=== PATIENT | female | born 2000 | race Two or more races ===

== ENCOUNTER 2021-04-12 16:47 | Emergency (ER) | payer OTHER, SELFPAY ==
[2021-04-12 17:32] VITALS: BP 102/57; PULSE 77; RESP 16; TEMP 36.3; O2SAT 100; BMI 24.3
[2021-04-12 18:05] LABS: IDNOW Serial# 9DD0AD1C; Strep A Nucleic Acid Negative (Negative)
--- NOTE | 2021-04-12 18:11 | ED.URI ---
HPI - URI/Sore Throat General Chief Complaint: Upper Respiratory Symptoms Stated Complaint: flu like Time Seen by Provider: 04/12/21 18:11 Source: patient Mode of arrival: ambulatory Limitations: no limitations History of Present Illness HPI Narrative: 20 y/o female presenting to the ER from home with 3 days of mild sore throat, runny nose, and dry cough. Her roommate is home with similar symptoms and he tested negative for COVID. She is fully vaccinated against COVID-19. She presents for COVID testing so that she can go back to work. MD elicited complaint: cough, sore throat and nasal congestion Onset (ago): day(s) (3) Consistency: intermittent Severity: mild Description of mucous: clear Able to tolerate fluids by mouth: Yes Exacerbating factors: nothing Relieving factors: nothing Context: sick contacts Associated symptoms: nasal congestion, sore throat and cough Treatments prior to arrival: none Related Data Allergies Allergy/AdvReac Type Severity Reaction Status Date / Time No Known Allergies Allergy Verified 04/12/21 17:37 Review of Systems Review of Systems: Constitutional: No Fever, No Chills ENT/Mouth: + sore throat, + Rhinorrhea, No Swallowing Difficulty Eyes: No Eye Pain, No Swelling, No Redness Cardiovascular: No Chest Pain, No SOB Respiratory: No Cough, No Sputum, No Wheezing, No dyspnea Gastrointestinal: No Nausea, No Vomiting, No abdominal Pain Musculoskeletal: No joint pain, No Myalgias Skin: No Skin Lesions, No rash Neuro: No Weakness, No Numbness, No Dizziness, No Headache Heme/Lymph: No Bruising, No Lymphadenopathy PMFSH Past Medical History Attestation statement: The following information was validated with the patient. Medical History (Updated 04/12/21 @ 18:48 by JOSEE Farris) No known health problems Social History Social History Advance Directives: No Advance Directives Information Provided: No Patient : No Physical Exam Vital Signs: Vital Signs: Last Vital Signs Temp 97.3 F 04/12/21 17:32 Pulse 77 04/12/21 17:32 Resp 16 04/12/21 17:32 BP 102/57 L 04/12/21 17:32 Pulse Ox 100 04/12/21 17:32 Body Mass Index 24.3 Appearance: Alert. Oriented X3. No acute distress. Eyes: Pupils equal, round and reactive to light. ENT: Pharynx normal. No tonsillar swelling, exudates, uvula midline. TMs are normal. Neck: Normal inspection. Neck supple. CVS: Normal heart rate and rhythm. Pulses normal. Respiratory: No respiratory distress. Breath sounds normal. Abdomen: Soft and nontender. +BS x4 Skin: Skin warm and dry. Normal skin color. Normal skin turgor. No rashes. Extremities: No lower extremity edema. Neuro: Oriented X 3. No motor deficit. No sensory deficit. Course Course Course Narrative: 20 y/o female presenting with mild URI symptoms, exam and vital signs are normal. Strep and COVID swabs are pending. Reevaluation(s) Reevaluation #1: All tests are negative. She is stable for discharge home. MDM - URI/Sore Throat Lab Data Labs: Lab Results 04/12/21 04/12/21 Range/Units 17:47 17:48 Coronavirus (PCR) NEGATIVE (Negative) Influenza Type A (PCR) NEGATIVE (Negative) Influenza Type B (PCR) NEGATIVE (Negative) RSV RNA Qual (PCR) NEGATIVE (Negative) S. pyogenes GrpA TEJAL Negative (Negative) Critical Care Time Critical Care Time Critical Care Time: No Discharge Plan Discharge Clinical Impression: Upper respiratory infection Qualifiers: URI type: unspecified URI Qualified Code(s): J06.9 - Acute upper respiratory infection, unspecified Patient Disposition: Home, Self-Care Instructions: Upper Respiratory Infection (ED) Additional Instructions: You were negative for Strep, COVID-19, Flu, & RSV. Your vital signs and exam were normal. Your symptoms are most likely due to a viral illness. Rest. Drink plenty of fluids. Take over the counter cold/flu medications as needed for your symptoms. Take Tylenol and/or Motrin as needed for fevers and body aches. Follow up with your doctor this week. If you develop new or worsening symptoms call 911 or come back to the ER for further evaluation. Stand Alone Forms: Work/School Release Interventions: ED Discharge Assessment Last Done: 04/12/21 19:02 Discharge Date/Time: 04/12/21 19:03
[2021-04-12 18:35] LABS: Influenza A PCR NEGATIVE (Negative); Influenza B PCR NEGATIVE (Negative); Resp Syncy Virus RNA Qual PCR NEGATIVE (Negative); SARS COV2 PCR INHOUSE NEGATIVE (Negative)
== END 2021-04-12 19:03 | disposition home or self-care (01) ==
PROVIDERS: Emergency Provider Internal Medicine
DX: J06.9 Acute upper respiratory infection, unspecified (principal); Z20.822 Contact with and (suspected) exposure to COVID-19; J02.9 Acute pharyngitis, unspecified
CPT/HCPCS: 0241U; 36415; 87651; 99283

== ENCOUNTER 2021-08-08 09:07 | Emergency (ER) | payer OTHER, SELFPAY ==
[2021-08-08 09:57] VITALS: BP 114/68; PULSE 108; RESP 18; TEMP 37.4; O2SAT 100; BMI 24.0
--- NOTE | 2021-08-08 10:34 | ED_ITS ---
HPI - General Adult General Chief complaint: Upper Respiratory Symptoms Stated complaint: COVID+ Time Seen by Provider: 08/08/21 10:34 History of Present Illness HPI narrative: Patient complains of 3 days of runny nose mild cough body aches, tested positive for COVID yesterday but did not get a work note is here today for work no She did get the vaccine 2 shots last summer Related Data Allergies Allergy/AdvReac Type Severity Reaction Status Date / Time No Known Allergies Allergy Verified 08/08/21 09:56 Review of Systems Review of Systems: Positive for runny nose mild cough and body aches Negatives are no fever no chills no dizziness weakness no headache no stiff neck no sore throat no chest pain no shortness of breath no sputum no abdominal pain no nausea vomiting or diarrhea Yes all other systems are reviewed and are negative [facility] Past Medical History Source: nursing notes reviewed Medical History (Updated 08/08/21 @ 10:40 by JOSEE Saini) No known health problems Social History Social History Advance Directives: No Advance Directives Information Provided: Yes Patient : No Physical Exam Vital Signs: Vital Signs: Last Vital Signs Temp 99.3 F 08/08/21 09:57 Pulse 108 H 08/08/21 09:57 Resp 18 08/08/21 09:57 BP 114/68 08/08/21 09:57 Pulse Ox 100 08/08/21 09:57 BMI result Body Mass Index 24.0 General appearance no acute distress Eyes no redness or discharge The pharynx no redness swelling or exudate, mucous membranes moist Neck is supple Chest clear to auscultation bilateral Heart no murmur Extremities full range of motion x4 Course Course Course Narrative: Well-appearing patient with COVID is discharged with a work note Discharge Plan Discharge Clinical Impression: COVID-19 Patient Disposition: Home, Self-Care Additional Instructions: Because he tested positive for COVID you should quarantine for 10 days Tylenol or Motrin as needed for body aches or fever Plenty fluids Return any time for difficulty breathing any worse condition or any concerns Quarantine for 10 days, this is very contagious Stand Alone Forms: Work/School Release Interventions: ED Discharge Assessment Last Done: 08/08/21 10:42 Discharge Date/Time: 08/08/21 10:43
== END 2021-08-08 10:43 | disposition home or self-care (01) ==
PROVIDERS: Emergency Provider Emergency Medicine
DX: U07.1 COVID-19 (principal); Z02.79 Encounter for issue of other medical certificate; M79.10 Myalgia, unspecified site
CPT/HCPCS: 99282

== ENCOUNTER 2021-09-13 15:20 | Emergency (ER) | payer OTHER, SELFPAY ==
[2021-09-13 15:23] VITALS: BP 114/55; PULSE 83; RESP 20; TEMP 36.9; O2SAT 97; BMI 22.8
[2021-09-13] MEDS: Lidocaine HCl 2 % MPF 5 ML VIAL SUBCUT (15:47)
[2021-09-13] MEDS: Diphth,Pertus(ACell),Tet Adult 0.5 ML SYRINGE IM (16:10)
--- NOTE | 2021-09-13 16:18 | ED_ITS ---
HPI - Animal Bite General Chief Complaint: Animal Bite Stated Complaint: dog pit her in the mouth Time Seen by Provider: 09/13/21 15:31 Source: patient Mode of arrival: ambulatory Limitations: no limitations History of Present Illness HPI narrative: 21-year-old female healthy here with reports of dog bite to the right lower lip. Patient tells me she was playing with her dog when she is care day and it bit her right lower lip. Rabies vaccines are not up-to-date. The patient's tetanus status is not up-to-date. Related Data Allergies Allergy/AdvReac Type Severity Reaction Status Date / Time No Known Allergies Allergy Verified 08/08/21 09:56 Review of Systems Verdana 4l Review of Systems: Yes all other systems are reviewed and Verdana 4d are negative Verdana 4l Constitutional: Verdana 4d Constitutional: Verdana 4d Verdana 4d Reports no additional constitutional complaints, Denies body ache(s), Denies chills, Denies fever(s), Denies headache(s) and Denies weakness Verdana 4l Eyes: Verdana 4d Verdana 4d Eyes: Verdana 4d Reports no additional eye complaints and Denies change in vision Verdana 4l ENT: Verdana 4d Reports system reviewed and no additional complaints, except as documented, Denies dizziness, Denies headache(s), Denies nasal congestion, Denies nasal discharge and Denies neck pain Verdana 4l Cardiovascular: Verdana 4d Cardiovascular: Verdana 4d Verdana 4d Reports no additional cardiovascular complaints, Denies chest pain, Denies leg edema and Denies dyspnea Verdana 4l Respiratory: Verdana 4d Verdana 4d Respiratory: Verdana 4d Reports no additional respiratory complaints, Denies cough and Denies dyspnea Verdana 4l Gastrointestinal: Verdana 4d Gastrointestinal: Verdana 4d Verdana 4d Reports no additional gastrointestinal complaints, Denies abdominal pain, Denies diarrhea, Denies nausea and Denies vomiting Verdana 4l Genitourinary: Verdana 4d Verdana 4d Genitourinary: Verdana 4d Reports no additional female genitourinary complaints and Denies urinary incontinence Verdana 4l Musculoskeletal: Verdana 4d Musculoskeletal: Verdana 4d Verdana 4d Reports no additional musculoskeletal complaints, Denies back pain, Denies arthralgias, Denies joint swelling, Denies neck pain, Denies numbness and Denies tingling Verdana 4l Integumentary/Breasts: Verdana 4d Skin/Breast: Verdana 4d Verdana 4d Reports system reviewed and no additional complaints, except as docu and Denies rash Verdana 4d Comments: Verdana 4d Verdana 4d +lac Verdana 4 d Verdana 4l Neurologic: Verdana 4d Reports system reviewed and no additional complaints, except as documented, Denies Abnormal speech present, Denies dizziness, Denies headache(s), Denies numbness, Denies tingling and Denies weakness PMFSH Past Medical History Attestation statement: The following information was validated with the patient. Source: old records reviewed and nursing notes reviewed Medical History No known health problems Social History Social History Advance Directives: No Advance Directives Information Provided: No Patient : No Physical Exam Verdana 4l Vital Signs: Verdana 4d Verdana 4d Vital Signs: Verdana 4d Verdana 4Bd Last Vital Signs Verdana 4d Drop Press Hand New 4d Drop Press Hand New 4d Temp 98.4 F 09/13/21 15:23 Drop Press Hand New 4d Pulse 83 09/13/21 15:23 Drop Press Hand New 4d Resp 20 09/13/21 15:23 BP 114/55 L 09/13/21 15:23 Pulse Ox 97 09/13/21 15:23 BMI result Body Mass Index 22.8 Const: General: cooperative, healthy appearing, comfortable and no acute distress Orientation/consciousness: patient oriented x3 Limitations: no limitations HENMT: Head: Yes normal to inspection Ears: hearing grossly normal bilaterally General nose exam: Normal external nose present Nose image: 1. 2 cm laceration which crosses the vermilion border. Bleeding is controlled Face and sinus: Yes normal facial exam Mouth: Normal oral and palatal mucosa present Throat: Yes posterior oropharynx normal Eyes: General: appearance normal, both eyes and all related structures Pupils: Equal, round and reactive pupils present Neck: Neck: Yes normal visual inspection Chest: Chest palpation & inspection: normal inspection of the chest Resp: Effort & Inspection: normal respiratory effort Auscultation: clear to auscult ation bilaterally Cardio: Rate: regular rate Rhythm: regular rhythm Peripheral pulses: Peripheral pulses 2+ throughout GI: Inspection: Yes normal to inspection Palpation (GI): Soft to palpation and nontender Auscultation: normal bowel sounds Back/Spine/Pelvis: Thoracic/Lumbar Spine: thoracic and lumbar spine normal to inspection Skin: General skin exam: no rashes or lesions noted Neuro: General: patient oriented x3, no focal motor deficits and normal sensation to monofilament Cranial nerves: Yes Equal, round and reactive pupils present Cognition (Neuro): normal cognition Speech: No Abnormal speech present Gait exam (Neuro): Normal gait present Motor exam (neuro): 5/5 motor strength present throughout Extrem: General: Yes normal to inspection Course Course Course Narrative: 21-year-old female here with dog bite to the face which occurred just prior to arrival. This is from the patient's own dog. Dog behaviors normal. Rabies va ccines are not up-to-date. Patient will monitor at home so she does not require reviewed back soon a shunt series. Will update tetanus. Patient will need wound repair. Reviewed worrisome signs and symptoms of when to return to the emergency department. Comfortable discharge home. MDM - Animal Bite Differential Diagnosis Differential diagnosis: Likely dog bite Medical Records Attestation: I reviewed the patient's medical records. Lab Data Attestation: I reviewed the patient's lab results. Procedures Laceration Laceration 1: Site: lip Side (If applicable): right Size (cm): 2 Description: linear Depth: simple, single layer Local Anesthetic: lidocaine 2% Amount of anesthesia used (mL): 1 Pre-repair: wound explored, irrigated extensively and deep structures intact Skin layer closed with: vicryl Size (cm): 6-0 Number of sutures: 2 Technique: simple, interrupted Discharge Plan Discharge Clinical Impression: Dog bite Patient Disposition: Home, Self-Care Instructions: Animal Bite (ED) Additional Instructions: Sutures out in 5-7 days Soft food only No straws for drinking Referrals: Physician,None [Primary Care Provider] - 2 days Interventions: ED Discharge Assessment Last Done: 09/13/21 16:23 Discharge Date/Time: 09/13/21 16:23
== END 2021-09-13 16:23 | disposition home or self-care (01) ==
PROVIDERS: Emergency Provider Emergency Medicine
DX: S01.551A Open bite of lip, initial encounter (principal); W54.0XXA Bitten by dog, initial encounter; Y93.89 Activity, other specified; Y92.039 Unspecified place in apartment as the place of occurrence of the external cause; Y99.9 Unspecified external cause status
CPT/HCPCS: 12051; 90471; 90715; 99283; 99284

== ENCOUNTER 2021-09-15 14:22 | Emergency (ER) | payer OTHER, SELFPAY ==
[2021-09-15 15:00] VITALS: BP 102/50; PULSE 60; RESP 16; TEMP 36.6; O2SAT 99; BMI 23.4
--- NOTE | 2021-09-15 15:49 | ED_ITS ---
HPI - Wound/Laceration General Chief Complaint: Wound/Laceration Stated Complaint: wound check Time Seen by Provider: 09/15/21 15:31 Source: patient Mode of arrival: ambulatory Limitations: no limitations History of Present Illness HPI narrative: 21-year-old female presents to ED for evaluation of dog bite wound to right side of lower lip. Patient states she has sutures placed on Wednesday and 1 popped and fell out. Patient denies any erythema, pus discharge, foul odor, or pain. Related Data Previous Rx's Medication Instructions Recorded amoxicillin 875 mg-potassium 1 tab PO Q12H 10 Days #20 tab 09/15/21 clavulanate 125 mg tablet Allergies Allergy/AdvReac Type Severity Reaction Status Date / Time No Known Allergies Allergy Verified 09/15/21 14:59 Review of Systems Review of Systems: wound dehiscence Yes all other systems are reviewed and are negative [facility] Past Medical History Medical History No known health problems Social History Social History Advance Directives: No Advance Directives Information Provided: No Patient : No Physical Exam Vital Signs: Vital Signs: Last Vital Signs Temp 97.9 F 09/15/21 15:00 Pulse 60 09/15/21 15:00 Resp 16 09/15/21 15:00 BP 102/50 L 09/15/21 15:00 Pulse Ox 99 09/15/21 15:00 BMI result Body Mass Index 23.4 Const: General: cooperative, healthy appearing, comfortable, no acute distress, well developed, alert, awake and Physically active Orientation/consciousness: patient oriented x3 HENMT: Head: Yes normal to inspection, Yes No palpable skull fracture present, Yes normocephalic and Yes atraumatic Head images: 1. patient has one suture in place wound that is healthy, healing. other wound suture no longer present, but is healing and negative for signs of infection. Eyes: General: appearance normal, both eyes and all related structures Neck: Neck: Yes normal visual inspection, Yes full ROM, Yes no lymphadenopathy, Yes no meningeal signs, Yes trachea midline, Yes supple, No anterior neck swelling and No tender Chest: Chest palpation & inspection: normal inspection of the chest and normal palpation of entire chest wall Resp: Effort & Inspection: normal respiratory effort and able to speak in complete sentences Auscultation: clear to auscultation bilaterally Cardio: Jugular venous distension: no JVD Heart sounds: S1 normal heart sound present and S2 normal heart sound present GI: Inspection: Yes normal to inspection and No abdominal wall ecchymosis Palpation (GI): Soft to palpation, not firm, nontender, no guarding and not rigid : General: No CVA tenderness and Yes no CVA tenderness Back/Spine/Pelvis: Back: no CVA tenderness, No CVA tenderness and No back tenderness Skin: General skin exam: no rashes or lesions noted and elasticity normal Neuro: General: patient oriented x3, gait normal, no meningeal signs and CN's II-XI intact bilaterally Cranial nerves: Yes CN's II-XII intact bilaterally Extrem: General: Yes normal to inspection and Yes full ROM Psych: Appearance: grossly normal, well kempt and not disheveled Course Course Course Narrative: Healthy wound. Reevaluation(s) Reevaluation #1: Wound negative for signs of infection. No need for repeat laceration repair. Wound dehiscence mild. Patient was seen here wednesday and was not discharged with antibiotics, will discharge with antibiotics for dog bite. Time: 15:58 MDM - Wound/Laceration MDM Narrative Medical decision making narrative: Wound dehiscence Discharge Plan Discharge Clinical Impression: Wound dehiscence Patient Disposition: Home, Self-Care Instructions: Wound Dehiscence (ED), Care For Your Absorbable Stitches (ED) Additional Instructions: There is no need for another laceration repair. Wound is healing and will continually heal on its own. He will be discharged with antibiotics to prevent infection from dog bite. Please follow-up with primary care provider. Return to ED for swelling of lips, redness, pus discharge, foul odor, fever, chills, or any other concerning symptoms. Prescriptions: New amoxicillin-pot clavulanate 875-125 mg tablet 1 tab PO Q12H 10 Days Qty: 20 0RF Interventions: ED Discharge Assessment Last Done: 09/15/21 16:17 Discharge Date/Time: 09/15/21 16:17 Print Language: Tongan
== END 2021-09-15 16:17 | disposition home or self-care (01) ==
PROVIDERS: Emergency Provider Emergency Medicine
DX: T81.33XD Disruption of traumatic injury wound repair, subsequent encounter (principal); Y82.9 Unspecified medical devices associated with adverse incidents
CPT/HCPCS: 99283

== ENCOUNTER 2021-12-27 11:40 | Emergency (ER) | payer OTHER, SELFPAY ==
[2021-12-27 12:06] VITALS: BP 113/52; PULSE 77; RESP 16; TEMP 36.6; O2SAT 99; BMI 23.4
--- NOTE | 2021-12-27 12:23 | ED.WOUNDLAC ---
HPI - Wound/Laceration General Chief Complaint: Wound/Laceration Stated Complaint: wound/lac. on buttocks Time Seen by Provider: 12/27/21 12:22 Source: patient Mode of arrival: ambulatory Limitations: no limitations History of Present Illness HPI narrative: 21 y/o female presents to the ER for evaluation of a pimple on her right buttock area for the last 4 days. She states it is draining puss starting last night and she had some subjective fevers last night. She reports history of similar but not this bad. Not diabetic. She works as a sprinkler truck driver is wondering how she is going to sit for prolonged time due to the pain. She denies any urinary symptom, genital lesions. Onset (ago): day(s) (4) Location: other (buttock) Place: home Patient tetanus UTD: Yes Context: accidental Associated symptoms: pain Treatments prior to arrival: other (attempted to drain pus at home) Related Data Previous Rx's Medication Instructions Recorded amoxicillin 875 mg-potassium 1 tab PO Q12H 10 Days #20 tab 09/15/21 clavulanate 125 mg tablet cephalexin 500 mg capsule 500 mg PO Q6H 7 Days #28 cap 12/27/21 ibuprofen 600 mg tablet 600 mg PO Q8H PRN #14 tab 12/27/21 Allergies Allergy/AdvReac Type Severity Reaction Status Date / Time No Known Allergies Allergy Verified 12/27/21 12:06 Review of Systems Review of Systems: Constitutional: + Fever,+Chills Cardiovascular: No Chest Pain, No SOB Gastrointestinal: No Nausea, No Vomiting,, No abdominal Pain Genitourinary: No Dysuria, No Urinary Frequency, No Hematuria Musculoskeletal: No joint pain, No Myalgias Skin: +Skin Lesions, No rash Neuro: No Weakness, No Dizziness, No Headache Psych: + Anxiety/Panic Heme/Lymph: No Bruising, No Lymphadenopathy PMFSH Past Medical History Medical History No known health problems Social History Social History Advance Directives: No Physical Exam Vital Signs: Vital Signs: Last Vital Signs Temp 97.8 F 12/27/21 12:06 Pulse 77 12/27/21 12:06 Resp 16 12/27/21 12:06 BP 113/52 L 12/27/21 12:06 Pulse Ox 99 12/27/21 12:06 BMI result Body Mass Index 23.4 Appearance: Alert. Oriented X3. No acute distress. HEENT: normal inspection CVS: Normal heart rate and rhythm. Pulses normal. Respiratory: No respiratory distress. Skin: Skin warm and dry. Normal skin color. Normal skin turgor. No rashes. Buttock: right buttock with a 6cm circular erythematous and indurated area with central pustule with draining bloody fluid, tender Extremities: normal inspection x4 Neuro: Oriented X 3. grossly normal, nonfocal Course Course Course Narrative: 21-year-old female presenting with draining abscess to right buttock with associated cellulitis. Will start on PO abx. no need for further incision and drainage. stable for d/c home with abx and NSAID. Discharge Plan Discharge Clinical Impression: Abscess, Cellulitis Patient Disposition: Home, Self-Care Instructions: Cellulitis (DC), Abscess (ED), Warm Compress or Soak (ED) Additional Instructions: Take the prescribed antibiotic as directed, complete the entire course. Use warm compresses to the area several times per day. If you develop new or worsening symptoms call 911 or come back to the ER for further evaluation. Prescriptions: New cephalexin 500 mg capsule 500 mg PO Q6H 7 Days Qty: 28 0RF ibuprofen 600 mg tablet 600 mg PO Q8H PRN (Reason: pain) Qty: 14 0RF No Action amoxicillin-pot clavulanate 875-125 mg tablet 1 tab PO Q12H 10 Days Qty: 20 0RF Stand Alone Forms: Work/School Release
[2021-12-27] MEDS: Ibuprofen 600 MG TABLET PO (12:57)
== END 2021-12-27 13:05 | disposition home or self-care (01) ==
PROVIDERS: Emergency Provider Emergency Medicine Emergency Medical Services
DX: L02.31 Cutaneous abscess of buttock (principal); L03.317 Cellulitis of buttock; Z79.899 Other long term (current) drug therapy
CPT/HCPCS: 99283

== ENCOUNTER 2021-12-28 17:16 | Emergency (ER) | payer OTHER, SELFPAY ==
[2021-12-28 17:19] VITALS: BP 116/50; PULSE 92; RESP 18; TEMP 37.1; O2SAT 99; BMI 23.4
--- NOTE | 2021-12-28 18:44 | ED.SKABFB ---
HPI - Skin/Abscess/Foreign Bdy General Chief complaint: Skin/Abscess/Foreign Body Stated complaint: wound on buttocks Source: patient Mode of arrival: ambulatory Limitations: no limitations History of Present Illness HPI narrative: 21-year-old female presents for evaluation of an abscess that was drained at this facility yesterday. States that she is having a difficult time sitting and pain is 10/10. MD complaint: abscess/boil Onset (ago): day(s) Tetanus up to date: yes Location: buttocks Severity: severe Severity scale (1-10): 10 Quality: burning and constant Pain Consistency: constant Relieving factors: rest Exacerbating factors: movement and other (Sitting) Context: other (Recent I&D) Associated symptoms: denies other symptoms Treatments prior to arrival: none Related Data Previous Rx's Medication Instructions Recorded amoxicillin 875 mg-potassium 1 tab PO Q12H 10 Days #20 tab 09/15/21 clavulanate 125 mg tablet cephalexin 500 mg capsule 500 mg PO Q6H 7 Days #28 cap 12/27/21 ibuprofen 600 mg tablet 600 mg PO Q8H PRN #14 tab 12/27/21 oxycodone 5 mg tablet 5 mg PO Q6H PRN #7 tab 12/28/21 Allergies Allergy/AdvReac Type Severity Reaction Status Date / Time No Known Allergies Allergy Verified 12/28/21 17:19 Review of Systems Review of Systems: Constitutional: No Fever, No Chills ENT/Mouth: No Ear Pain, No Hoarseness, No sore throat Eyes: No Eye Pain, No Swelling, No Redness, No Foreign Body Cardiovascular: No Chest Pain, No SOB Respiratory: No Cough, No Dyspnea Gastrointestinal: No Nausea, No Vomiting, No Diarrhea, No abdominal Pain Genitourinary: No Dysuria, No Hematuria Musculoskeletal: positive left buttocks pain, No Myalgias, No Joint Swelling Skin: No Skin lacerations, No rash Neuro: No Weakness, No Numbness, No Paresthesias, No Loss of Consciousness, No Dizziness, No Headache Psych: No Anxiety/Panic, No Depression Heme/Lymph: no easy bruising, no Lymphadenopathy Endocrine: No Polyuria, No Polydipsia Yes all other systems are reviewed and are negative PMFSH Past Medical History Attestation statement: The following information was validated with the patient. Source: old records reviewed Medical History No known health problems Social History Social History Advance Directives: No Advance Directives Information Provided: Yes Physical Exam Vital Signs: Vital Signs: Last Vital Signs Temp 98.8 F 12/28/21 17:19 Pulse 92 12/28/21 17:19 Resp 18 12/28/21 17:19 BP 116/50 L 12/28/21 17:19 Pulse Ox 99 12/28/21 17:19 BMI result Body Mass Index 23.4 Appearance: Alert. Oriented X3. No acute distress. Eyes: Pupils equal, round and reactive to light. ENT: Pharynx normal. Neck: Normal inspection. Neck supple. CVS: Normal heart rate and rhythm. Pulses normal. Respiratory: No respiratory distress. Breath sounds normal. Abdomen: Soft and nontender. Skin: Draining abscess approximately 2 cm in diameter with induration on the left buttock, minimal cellulitis. Skin warm and dry. Normal skin color. Normal skin turgor. Extremities: No lower extremity edema. Gait well balanced well coordinated. Neuro: No motor deficit. No sensory deficit. Cranial nerves 2-12 intact. Course Course Course Narrative: 21-year-old female presents for evaluation of an I&D of a buttocks abscess. States that she is on ibuprofen and Keflex with poor effect for pain management. Site is actively draining, nonodorous drainage. Approximately 2 cm of induration with 1 cm cellulitis surrounding the incision site. Area appears to be healing appropriately. Patient is afebrile, appears nontoxic. Will treat for pain with 4 mg of IM morphine and p.o. oxycodone. 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 I will give her work release note and provide oxycodone for pain management patient does understand that she must follow-up with primary care physician and return for evaluation if symptoms worsen. Patient verbalized understanding of and agrees to plan of care to discharge home. Verbalized understanding of signs and symptoms indicating need for emergent intervention MDM - Skin/Abscess/Foreign Bdy Differential Diagnosis Differential diagnosis: Likely abscess of skin or subcutaneous tissue and cellulitis Medical Records Attestation: I reviewed the patient's medical records. Discharge Plan Discharge Clinical Impression: Cellulitis, Abscess of skin or subcutaneous tissue Patient Disposition: Home, Self-Care Instructions: Abscess Follow-up (ED) Additional Instructions: You were evaluated for pain at an I&D site to her left buttock. The wound is healing well, continue to take your medications as prescribed. For pain management I prescribed oxycodone. This medication is a narcotic and has high risk for addiction and abuse. Do not drive or operate machinery while taking this medication. This medication can cause drowsiness, increased risk for falls, decreased reaction time, and cause constipation. Drink plenty of fluids, consider using MiraLax daily while on this medication to prevent constipation. Follow-up with primary care physician. Return if symptoms worsen Thank you for choosing this emergency department for evaluation. Please follow-up with primary care physician as needed. Return to the emergency department for any new, concerning, or worsening symptoms. Prescriptions: New oxycodone 5 mg tablet 5 mg PO Q6H PRN (Reason: pain) Qty: 7 0RF No Action amoxicillin-pot clavulanate 875-125 mg tablet 1 tab PO Q12H 10 Days Qty: 20 0RF cephalexin 500 mg capsule 500 mg PO Q6H 7 Days Qty: 28 0RF ibuprofen 600 mg tablet 600 mg PO Q8H PRN (Reason: pain) Qty: 14 0RF Stand Alone Forms: Work/School Release Interventions: ED Discharge Assessment Last Done: 12/28/21 19:29 Discharge Date/Time: 12/28/21 19:30
[2021-12-28] MEDS: oxyCODONE HCl Immed Release 5 MG TABLET PO (19:18)
[2021-12-28] MEDS: Morphine Sulfate 4 MG/ML CARTRIDGE IM (19:19)
== END 2021-12-28 19:30 | disposition home or self-care (01) ==
PROVIDERS: Emergency Provider Internal Medicine
DX: L02.31 Cutaneous abscess of buttock (principal); L03.317 Cellulitis of buttock; Z98.890 Other specified postprocedural states
CPT/HCPCS: 96372; 99282; 99284; J2270

== ENCOUNTER 2023-02-03 14:26 | Emergency (ER) | payer OTHER, SELFPAY ==
--- NOTE | ~2023-02-03 | XR_ITS ---
EXAMINATION: XR FOOT, RIGHT CLINICAL INFORMATION: Air conditioner fell on foot. COMPARISON: None available. TECHNIQUE: AP, lateral, and oblique views of the right foot. FINDINGS: Alignment is anatomic. Joint spaces are maintained. No displaced fracture or dislocation. XR/XR foot RT min 3V IMPRESSION: No acute abnormality.
[2023-02-03 15:12] VITALS: BP 114/70; PULSE 64; RESP 18; TEMP 36.4; O2SAT 100; BMI 24.6
--- NOTE | 2023-02-03 15:12 | ED.LOWEXIN ---
HPI - Extremity Injury (Lower) General Chief Complaint: Extremity Injury, Lower Stated Complaint: right foot injury Time Seen by Provider: 02/03/23 15:19 Source: patient Mode of arrival: ambulatory Limitations: no limitations History of Present Illness HPI Narrative: Patient is a 22-year-old female with no pertinent past medical history who presents today after dropping a portable AC on her right foot yesterday. Patient reports difficulty walking as there is pain on the plantar aspect of her right foot at the base of the first toe. Patient is ambulating and reports increased pain throughout the day wall walking. Patient denies swelling, ecchymosis, and warmth at the injury site. Patient denies limited range of motion, numbness, tingling, difficulty with balance, fevers, chills. . Patient reports taking an aspirin 2 days ago little to no relief. No previous issues w/ R foot. . Injury: Right: foot (Pain upon weight bearing on the plantar aspect at the base of the first toe) Type of Injury: blunt Place: street/outdoors Severity: mild Severity scale (1-10): 5 (Pain when walking ) Relieving factors: immobilization and rest Exacerbating factors: weight bearing Context: direct blow and other Associated symptoms: ambulatory Other symptoms: none Related Data Previous Rx's Medication Instructions Recorded amoxicillin 875 mg-potassium 1 tab PO Q12H 10 days #20 tabs 09/15/21 clavulanate 125 mg tablet cephalexin 500 mg capsule 500 mg PO Q6H 7 days #28 caps 12/27/21 ibuprofen 600 mg tablet 600 mg PO Q8H PRN pain #14 tabs 12/27/21 oxycodone 5 mg tablet 5 mg PO Q6H PRN pain #7 tabs 12/28/21 Allergies Allergy/AdvReac Type Severity Reaction Status Date / Time No Known Allergies Allergy Verified 02/03/23 15:15 Review of Systems Review of Systems: Constitutional : No Weight loss, No Fever, No Chills, No Fatigue, No Malaise ENT/Mouth : No sore throat, No Rhinorrhea Eyes: No Eye Pain, No Swelling, No Redness Cardiovascular : No Chest Pain, No SOB, No Dyspnea on Exertion, No Orthopnea, No Edema, No Palpitations Respiratory : No Cough, No Sputum, No Wheezing Gastrointestinal : No Nausea, No Vomiting, No Diarrhea, No Constipation, No abdominal Pain, No Hematochezia, No Melena Genitourinary : No Dysuria, No Urinary Frequency, No Hematuria, Musculoskeletal : + joint pain, No Myalgias, No Joint Swelling Skin : No Skin Lesions, No rash Neuro : No Weakness, No Numbness, No Dizziness, No Headache Psych : No Anxiety/Panic, No Depression All other systems reviewed and are negative Yes all other systems are reviewed and are negative Musculoskeletal: Musculoskeletal: Reports as per [facility] Past Medical History Attestation statement: The following information was validated with the patient. Source: old records reviewed and nursing notes reviewed Medical History No known health problems Social History Social History Advance Directives: No Advance Directives Information Provided: No Physical Exam Vital Signs: Vital Signs: Last Vital Signs Temp 97.6 F 02/03/23 15:12 Pulse 64 02/03/23 15:12 Resp 18 02/03/23 16:00 BP 114/70 02/03/23 15:12 Pulse Ox 100 02/03/23 15:12 O2 Del Method Room Air 02/03/23 15:12 BMI result Body Mass Index 24.6 vital signs stable Appearance: Alert.? Oriented X3.? No acute distress.? Head: Normocephalic, atraumatic, no step-offs or deformities Eyes: Pupils equal, round and reactive to light.? CVS: Normal heart rate and rhythm.? Pulses normal.? Respiratory: No respiratory distress.? Breath sounds normal.? Abdomen: Soft and nontender.? Skin: Skin warm and dry.? Normal skin color.? Normal skin turgor.? Extremities: No lower extremity edema.? No calf ttp. 5/5 strength to bilateral upper and lower extremities Normal range of motion to bilateral ankles, toes, 2+ dorsalis pedis, anterior tibialis and posterior tibialis pulses equal bilateral. Normal sensation distally to bilateral lower extremities. Capillary refill less than 2 seconds to bilateral lower extremities. Mild TTP to ball of R. foot. Back: No midline tenderness, no C-spine tenderness, full range of motion, no CVA tenderness bilaterally Neuro: Oriented X 3.? No motor deficit.? No sensory deficit. CN 2-12 intact . Ambulating with steady gait normal coordination However slight limp favoring her left foot Course Course Course Narrative: RME: 22yo F w/no sig PMHx c/o right foot pain s/p dropping AC unit on foot yesterday around 9pm. Ambulating w/pain No appreciable deformity. NV intact XR ordered Full HPI, ROS and PE to be performed by primary ED provider. Reevaluation(s) Reevaluation #1: X-ray foot no acute abnormality. Likely sprain or strain. Patient given crutches for comfort. Given Orthopedic follow-up with needed. Educated patient on diagnosis and treatment plan, answered all question, patient verbalizes understanding. At this time patient will be discharged home, advised to return with new or worsening symptoms. Educated on worrisome signs and symptoms and when to return. At this time I feel comfortable discharge home. Time: 16:39 Medical Decision Making Medical Decision Making [facility] Narrative: 1526 22-year-old female presents with right foot pain status post dropping an air conditioner on her foot last night. Physical exam significant for 5/5 strength to bilateral upper and lower extremities Normal range of motion to bilateral ankles, toes, 2+ dorsalis pedis, anterior tibialis and posterior tibialis pulses equal bilateral. Normal sensation distally to bilateral lower extremities. Capillary refill less than 2 seconds to bilateral lower extremities. Mild TTP to ball of R. foot. concerns for sprain / strain. Unlikely fractures, dislocations. No signs of neurovascular compromise or threatened limb. Plan x-ray Differential Diagnosis Differential Diagnoses: The differential diagnosis associated with the presentation includes Physical exam significant for 5/5 strength to bilateral upper and lower extremities Normal range of motion to bilateral ankles, toes, 2+ dorsalis pedis, anterior tibialis and posterior tibialis pulses equal bilateral. Normal sensation distally to bilateral lower extremities. Capillary refill less than 2 seconds to bilateral lower extremities. No tenderness to palpation of foot bilaterally. Admission/Observation Consideration of admission/observation: Escalation of care including admission/observation considered unl Independent Interpretation I performed an independent interpretation of an: Plain X-Ray (XR/XR foot RT min 3V IMPRESSION: No acute abnormality.) Radiology Impression Discussion of test interpretation with radiology: I have reviewed the radiologist's reading. Core Measures AMI core measures followed: Yes Measure exclusions: not indicated Critical Care Time Critical Care Time Critical Care Time: No Discharge Plan Discharge Clinical Impression: Foot pain Patient Disposition: Home, Self-Care Instructions: Crutch Instructions (ED), Arthralgia (ED), R.I.C.E. Treatment (ED) Additional Instructions: Take your medications as prescribed. If you were prescribed antibiotics today, it is important that you take your medication to their entirety, do not skip any doses, do not finish them early. Follow-up with your primary care provider this week. follow-up with the orthopedic team if symptoms persist greater than 2 week Return to the emergency department with new or worsening symptoms. Such as fevers, chills, chest pain, shortness of breath, nausea, vomiting, dizziness, headache, vision changes, lethargy In case of emergency call 911 You can take ibuprofen every 6 hours, Tylenol every 4 as needed for pain or discomfort, do not XR/XR foot RT min 3V IMPRESSION: No acute abnormality. Prescriptions: No Action oxycodone 5 mg tablet 5 mg PO Q6H PRN (Reason: pain) Qty: 7 0RF amoxicillin-pot clavulanate 875-125 mg tablet 1 tab PO Q12H 10 Days Qty: 20 0RF cephalexin 500 mg capsule 500 mg PO Q6H 7 Days Qty: 28 0RF ibuprofen 600 mg tablet 600 mg PO Q8H PRN (Reason: pain) Qty: 14 0RF Referrals: [facility] [place] Orthopedic Surgeons [Provider Group] - 2 days Physician,None [Primary Care Provider] - 2 days Stand Alone Forms: Work/School Release
[2023-02-03 16:00] VITALS: RESP 18
== END 2023-02-03 17:11 | disposition home or self-care (01) ==
PROVIDERS: Emergency Provider Emergency Medicine
DX: M79.671 Pain in right foot (principal)
CPT/HCPCS: 73630; 99283

== ENCOUNTER 2023-03-19 15:57 | Emergency (ER) | payer OTHER, SELFPAY ==
[2023-03-19 17:15] VITALS: BP 119/67; PULSE 58; RESP 16; TEMP 36.9; O2SAT 99; BMI 24.6
--- NOTE | 2023-03-19 19:25 | ED.GENADULT ---
HPI - General Adult General Chief complaint: Eye Problems Stated complaint: contact behind eyeball 20 min ago Time Seen by Provider: 03/19/23 19:20 Source: patient Mode of arrival: ambulatory Limitations: no limitations History of Present Illness HPI narrative: Patient is a 22 year old assigned female at with no reported medical history presenting to the emergency department today with right eye pain. Patient states that this morning she lost her contact at the top of her eye and has been rubbing it ever since. Patient states that she feels as though there is still something in it. Patient denies any dizziness, lightheadedness, abdominal pain, nausea, vomiting, fever, chills, blurry vision, double vision, loss of vision, chest pain, difficulty breathing, shortness of breath, back pain, night sweats, pain with urination, increased urinary frequency, increased urinary urgency, blood in her urine or stool, syncope or a near syncopal episode, recent trauma or falls, bowel incontinence, bladder incontinence, bowel retention, bladder retention, or any other complaints at this time. Onset (ago): hour(s) Location: eyes and right Radiation: non-radiation Severity: mild Severity scale (1-10): 3 Relieving factors: none Exacerbating factors: none Associated symptoms: denies other symptoms Treatments prior to arrival: none Related Data Previous Rx's Medication Instructions Recorded amoxicillin 875 mg-potassium 1 tab PO Q12H 10 days #20 tabs 09/15/21 clavulanate 125 mg tablet cephalexin 500 mg capsule 500 mg PO Q6H 7 days #28 caps 12/27/21 ibuprofen 600 mg tablet 600 mg PO Q8H PRN pain #14 tabs 12/27/21 oxycodone 5 mg tablet 5 mg PO Q6H PRN pain #7 tabs 12/28/21 erythromycin 5 mg/gram (0.5 %) eye 0.5 inch ophthalmic (eye) Q4H #3.5 03/19/23 ointment grams Allergies Allergy/AdvReac Type Severity Reaction Status Date / Time No Known Allergies Allergy Verified 02/03/23 15:15 Review of Systems Constitutional: Constitutional: Reports no additional constitutional complaints, Denies chills, Denies fever(s) and Denies night sweats Eyes: Eyes: Reports no additional eye complaints, Denies blurry vision, Denies change in vision, Denies diplopia, Denies eye discharge, Denies loss of vision and Reports eye pain (right) ENT: Denies dizziness Cardiovascular: Cardiovascular: Reports no additional cardiovascular complaints, Denies chest pain, Denies lightheadedness, Denies Loss of Consciousness and Denies dyspnea Respiratory: Respiratory: Reports no additional respiratory complaints and Denies dyspnea Gastrointestinal: Gastrointestinal: Reports no additional gastrointestinal complaints, Denies abdominal pain, Denies melena, Denies hematochezia, Denies change in bowel habits and Denies change in stool character Genitourinary: Genitourinary: Denies hematuria, Denies urinary frequency, Denies dysuria, Denies urinary incontinence, Denies urinary hesitancy and Denies urinary urgency Musculoskeletal: Musculoskeletal: Reports no additional musculoskeletal complaints, Denies numbness and Denies tingling Neurologic: Denies dizziness, Denies loss of vision, Denies numbness and Denies tingling Psychiatric: Psychiatric: Reports no additional psychiatric complaints Endocrine: Endocrine: Reports no additional endocrine complaints Hematologic/Lymphatic: Hematologic/Lymphatic: Reports no additional hematologic/lymphatic complaints Allergic/Immunologic: Allergic/Immunologic: Reports no additional allergic/immunologic complaints PMFSH Past Medical History Attestation statement: The following information was validated with the patient. Source: old records reviewed and nursing notes reviewed Medical History COVID-19 No known health problems Social History Social History Advance Directives: No Advance Directives Information Provided: No Physical Exam ED Vital Signs: Vital Signs - 24 hr 03/19/23 17:15 Temperature 98.4 F Pulse Rate 58 Respiratory Rate 16 Blood Pressure 119/67 Pulse Oximetry 99 Oxygen Delivery Method Room Air BMI result Body Mass Index 24.6 Const General: cooperative, no acute distress, alert and awake Nutritional Appearance: well nourished Orientation/consciousness: patient oriented x3 Limitations: no limitations HENMT Head: Yes normal to inspection and Yes atraumatic Ears: hearing grossly normal bilaterally and external ears normal General nose exam: Normal external nose present, no nasal discharge noted and no epistaxis Face and sinus: Yes normal facial exam, No abrasion and No laceration Mouth: Normal oral and palatal mucosa present, no drooling and no muffled voice Eyes Periorbital: periorbital findings normal Eyelids: Yes eyelids normal Conjunctivae: conjunctivae normal Corneas: corneas abnormal on the right abrasion Pupils: Equal, round and reactive pupils present EOM: EOMs intact bilaterally Neck Neck: Yes normal visual inspection, Yes full ROM and Yes no lymphadenopathy Chest Chest palpation & inspection: normal inspection of the chest Resp Effort & Inspection: normal respiratory effort and able to speak in complete sentences GI Inspection: Yes normal to inspection Neuro General: patient oriented x3 and moves all extremities Cranial nerves: Yes Equal, round and reactive pupils present Cognition (Neuro): normal cognition Motor exam (neuro): 5/5 motor strength present throughout Sensory Exam: Normal double simultaneous stimulation for sensation Coordination: [id number] test normal Extrem General: Yes normal to inspection, Yes full ROM and Yes capillary refill normal Psych Appearance: grossly normal Mental Status: mental status grossly normal Affect: normal affect Attitude: cooperative Thought process: Normal thought process present Thought content: Normal thought content present Insight: Good insight present (Psych) Medical Decision Making Medical Decision Making MDM Narrative: Patient is a 22 year old assigned female at with no reported medical history presenting to the emergency department today with right eye pain. Patient's physical exam showed no foreign body in the eye but did show a right corneal abrasion. I explained my physical exam findings to the patient. I answered all questions asked by the patient. I stressed the importance of the patient taking her medication as prescribed. I stressed the importance of the patient following up with her primary care provider and an web site specialist. I stressed the importance of the patient returning to the emergency department immediately if her symptoms were to worsen or if she were to develop any dizziness, shortness of breath, difficulty breathing, chest pain, blurry vision, loss of vision, nausea, vomiting, abdominal pain, fever, chills, back pain, or any other complaints. Patient verbalized agreement and understanding with this treatment plan and discharge. Differential Diagnosis Differential Diagnoses: The differential diagnosis associated with the presentation includes Right eye pain Right eye irritation Corneal abrasion Prescription Management I considered prescription management with: Antibiotic (patient prescribed an antibiotic) Discharge Plan Discharge Clinical Impression: Corneal abrasion Patient Disposition: Home, Self-Care Instructions: Corneal Abrasion (DC) Additional Instructions: Follow up with your primary care provider an an web site specialist. Return to the emergency department immediately if your symptoms worsen or if you develop any dizziness, shortness of breath, difficulty breathing, chest pain, blurry vision, loss of vision, nausea, vomiting, abdominal pain, fever, chills, back pain, or any other complaints. Prescriptions: New erythromycin 5 mg/gram (0.5 %) ointment 0.5 inch ophthalmic (eye) Q4H Qty: 3.5 0RF No Action oxycodone 5 mg tablet 5 mg PO Q6H PRN (Reason: pain) Qty: 7 0RF amoxicillin-pot clavulanate 875-125 mg tablet 1 tab PO Q12H 10 Days Qty: 20 0RF cephalexin 500 mg capsule 500 mg PO Q6H 7 Days Qty: 28 0RF ibuprofen 600 mg tablet 600 mg PO Q8H PRN (Reason: pain) Qty: 14 0RF Referrals: [facility] [place] Family Medicine [Provider Group] (Call to establish and follow up with a primary care provider. If you already have a primary care provider, please follow up with them.) [facility] [place] Primary Care, Arturo [Provider Group] (Call to establish and follow up with a primary care provider. If you already have a primary care provider, please follow up with them.) [facility] [place] Primary Care,Yasir [Provider Group] (Call to establish and follow up with a primary care provider. If you already have a primary care provider, please follow up with them.) Natanael Uagrte [Physician] - (Call to establish and follow up with an web site specialist.) Stand Alone Forms: Work/School Release Print Language: Barbadian
== END 2023-03-19 19:55 | disposition home or self-care (01) ==
PROVIDERS: Emergency Provider Emergency Medicine
DX: H18.821 Corneal disorder due to contact lens, right eye (principal); H57.11 Ocular pain, right eye
CPT/HCPCS: 99282; 99283

== ENCOUNTER 2024-02-19 23:58 | Emergency (ER) | payer OTHER, SELFPAY ==
[2024-02-20 00:08] VITALS: BP 139/76; PULSE 79; RESP 16; TEMP 36.2; O2SAT 100; BMI 24.4
--- NOTE | 2024-02-20 00:33 | MHC.EDTECH ---
PATIENT BLOOD DRAWN AND URINE SAMPLE COLLECTED ALL SENT TO LAB .
[2024-02-20 00:34] LABS: MANUAL DIFF FLAG NO
[2024-02-20 00:36] LABS: Basophils Absolute Auto 0.1 X10*3/uL (0.0-0.2); Basophils Percent Auto 0.5 % (0-2); Eosinophils Percent Auto 0.2 % (0-4); Hematocrit 32.2 % (37.0-47.0); Hemoglobin 10.4 g/dl (12.0-16.0); Imm Gran Abs Auto 0.04 X10*3/uL (0.00-0.03); Imm Gran Pct Auto 0.4 % (0.0-0.4); Lymphocytes Absolute Auto 2.3 X10*3/uL (1.2-4.9); Lymphocytes Percent Auto 21.5 % (20-40); Mean Corpuscular HGB Conc 32.3 g/dl (31.0-35.0); Mean Corpuscular Hemoglobin 22.8 pg (27.0-33.0); Mean Corpuscular Volume 70.6 fL (80.0-98.0); Mean Platelet Volume 10.6 fL (9.4-12.3); Monocytes Absolute Auto 0.6 X10*3/uL (0.1-1.2); Monocytes Percent Auto 5.8 % (2-11); Neutrophils Absolute Auto 7.7 x10*3/uL (2.0-8.3); Neutrophils Percent Auto 71.6 % (45-73); Platelet Count 272 X10*3/uL (160-400); Red Blood Count 4.56 X10*6/uL (4.20-5.50); Red Cell Distribution Width 14.6 % (11.0-16.0); White Blood Count 10.8 X10*3/uL (4.8-10.8)
[2024-02-20 00:37] LABS: Appearance Urine Clear; Color Urine Yellow; Glucose Urine UA Negative (Negative); Leukocyte Esterase Urine Negative (Negative); Nitrite Urine Negative (Negative); UMIC TRIGGER UACC YES; Urine Blood Large (3+) (Negative); Urine Ketones Negative (Negative); Urine Protein Negative (Neg-Trace)
[2024-02-20 00:50] LABS: Bacteria Urine None Seen (None Seen); Hyaline Casts Urine 0-2 /LPF (0-2); RBC Urine 0-2 /HPF (0-2); Squamous Epithelial Cell Urine 0-2 /HPF (0-2); WBC Urine 0-5 /HPF (0-5)
[2024-02-20 00:59] LABS: Alanine Aminotransferase 14 U/L (0-31); Albumin Level 4.5 g/dL (3.5-5.0); Alkaline Phosphatase 74 U/L (39-117); Anion Gap 15 (12-20); Aspartate Amino Transferase 18 U/L (5-31); Bilirubin Direct 0.2 mg/dL (0.0-0.5); Bilirubin Total 0.4 mg/dL (0.0-1.0); Blood Urea Nitrogen 9 mg/dL (9-16); Calcium 9.8 mg/dL (8.4-10.2); Carbon Dioxide 22 mmol/L (22-29); Chloride 105 mmol/L (96-108); Creatinine Clr Calc Pharmacy 97.5; Estimated Glomerular Filt Rate > 60; Glucose Random 98 mg/dL (60-115); HCG Quantitative < 2 mIU/mL; Potassium 4.4 mmol/L (3.3-5.1); Sodium 138 mmol/L (135-145); Total Protein 7.5 g/dL (6.5-8.0)
[2024-02-20 01:03] VITALS: BP 109/66; PULSE 66; RESP 12; TEMP 36.6; O2SAT 99
--- NOTE | 2024-02-20 03:30 | ED_ITS ---
HPI - Female Genitourinary General Chief complaint: Vaginal Bleeding Stated complaint: vaginal bleeding? Time Seen by Provider: 02/20/24 03:18 Source: patient Mode of arrival: ambulatory Limitations: no limitations History of Present Illness ED Provider: Dr. Jimena Hatfield HPI Narrative: Patient comes to the emergency room complaining of vaginal bleeding. Patient states that she had her last menstrual period, last day 2 weeks ago. Patient states that earlier today she had a panic attack at work, went to the bathroom to urinate and noticed it was a bit of blood when she wiped. Patient denies hematuria or dysuria. Related Data Previous Rx's ?Medication ?Instructions ?Recorded amoxicillin 875 mg-potassium 1 tab PO Q12H 10 days #20 tabs 09/15/21 clavulanate 125 mg tablet cephalexin 500 mg capsule 500 mg PO Q6H 7 days #28 caps 12/27/21 ibuprofen 600 mg tablet 600 mg PO Q8H PRN pain #14 tabs 12/27/21 oxycodone 5 mg tablet 5 mg PO Q6H PRN pain #7 tabs 12/28/21 erythromycin 5 mg/gram (0.5 %) eye 0.5 inch ophthalmic (eye) Q4H #3.5 03/19/23 ointment grams Allergies Allergy/AdvReac Type Severity Reaction Status Date / Time No Known Allergies Allergy Verified 02/20/24 00:11 Review of Systems 2 Review of Systems: Constitutional : No Weight loss, No Fever, No Chills, No Night Sweats, No Fatigue, No Malaise ENT/Mouth : No Hearing loss, No Ear Pain, No Nasal Congestion, No Sinus Pain, No Hoarseness, No sore throat, No Rhinorrhea, No Swallowing Difficulty Eyes: No Eye Pain, No Swelling, No Redness, No Foreign Body, No Discharge, No Vision Changes Cardiovascular : No Chest Pain, No SOB, No Dyspnea on Exertion, No Orthopnea, No Edema, No Palpitations Respiratory : No Cough, No Sputum, No Wheezing, No Smoke Exposure, No Dyspnea Gastrointestinal : No Nausea, No Vomiting, No Diarrhea, No Constipation, No abdominal Pain, No Hematochezia, No Melena Genitourinary : Complaining of irregular bleeding, No Dysuria, No Urinary Frequency, No Hematuria, No Urinary Incontinence, No Urgency, No Flank Pain, No Urinary Flow Changes, No Hesitancy Musculoskeletal : No joint pain, No Myalgias, No Joint Swelling Skin : No Skin Lesions, No rash Neuro : No Weakness, No Numbness, No Paresthesias, No Loss of Consciousness, No Dizziness, No Headache Psych : No Anxiety/Panic, No Depression, No SI/HI/AH/VH, No Social Issues, Heme/Lymph: No Bruising, No Bleeding,No Lymphadenopathy Endocrine : No Polyuria, No Polydipsia, No Temperature Intolerance COUNT INCLUDES THE [facility] Past Medical History Medical History COVID-19 No known health problems Social History Social History Advance Directives: No Advance Directives Information Provided: No Do you have a plan to hurt others: No Plan Physical Exam 2 Vital Signs: Vital Signs: Last Vital Signs Temp 97.8 F 02/20/24 01:03 Pulse 66 02/20/24 01:03 Resp 12 02/20/24 01:03 BP 109/66 02/20/24 01:03 Pulse Ox 99 02/20/24 01:03 O2 Del Method Room Air 02/20/24 01:03 BMI result Body Mass Index 24.4 Const: Other: Appearance: Alert. Oriented X3. No acute distress. Well-appearing Eyes: Pupils equal, round and reactive to light. ENT: Pharynx normal. Neck: Normal inspection. Neck supple. No lymph nodes noted. No crepitus CVS: Normal heart rate and rhythm. Pulses normal. Normal S1 and S2 Respiratory: No respiratory distress. Breath sounds normal. No Wheezing. No rales Abdomen: Soft and nontender. No rigidity. No distention. : Scant amount of blood in the vaginal vault Skin: Skin warm and dry. Normal skin color. Normal skin turgor. Extremities: No lower extremity edema. No Lacerations. No Rash Neuro: Oriented X 3. No motor deficit. No sensory deficit. Moving all extremities. No slurred speech. CN 2 through 12 grossly intact Psych: calm, cooperative, normal affect Medical Decision Making Medical Decision Making MDM Narrative: I discussed the physical exam with the patient, no heavy bleeding, patient likely had an episode of menometrorrhagia. -patient' hemoglobin shows a hemoglobin of 10.4, discussed with the patient to follow-up with her OBGYN and PCP for anemia. -otherwise patient feels well. Lab Data MDM Lab Attestation statement: I reviewed the patient's lab results. 02/20/24 00:30 02/20/24 00:30 Labs: Lab Results 02/20/24 Range/Units 00:30 WBC 10.8 (4.8-10.8) X10*3/uL RBC 4.56 (4.20-5.50) X10*6/uL Hgb 10.4 L (12.0-16.0) g/dl Hct 32.2 L (37.0-47.0) % MCV 70.6 L (80.0-98.0) fL MCH 22.8 L (27.0-33.0) pg MCHC 32.3 (31.0-35.0) g/dl RDW 14.6 (11.0-16.0) % Plt Count 272 (160-400) X10*3/uL MPV 10.6 (9.4-12.3) fL Immature Gran % (Auto) 0.4 (0.0-0.4) % Neut % (Auto) 71.6 (45-73) % Lymph % (Auto) 21.5 (20-40) % Morgan % (Auto) 5.8 (2-11) % Eos % (Auto) 0.2 (0-4) % Baso % (Auto) 0.5 (0-2) % Lymph # (Auto) 2.3 (1.2-4.9) X10*3/uL Morgan # (Auto) 0.6 (0.1-1.2) X10*3/uL Eos # (Auto) 0.0 (0.0-0.4) X10*3/uL Baso # (Auto) 0.1 (0.0-0.2) X10*3/uL Abs Immat Gran (auto) 0.04 H (0.00-0.03) X10*3/uL Absolute Neuts (auto) 7.7 (2.0-8.3) x10*3/uL Absolute Nucleated RBC 0.000 (0.0-0.012) X10*3/uL Nucleated RBC % (auto) 0.0 (0.0-0.2) /100WBC Sodium 138 (135-145) mmol/L Potassium 4.4 (3.3-5.1) mmol/L Chloride 105 (96-108) mmol/L Carbon Dioxide 22 (22-29) mmol/L Anion Gap 15 (12-20) BUN 9 (9-16) mg/dL Creatinine 0.74 (0.5-1.4) mg/dL Estim Creat Clear Calc 97.5 Estimated GFR > 60 Random Glucose 98 (60-115) mg/dL Calcium 9.8 (8.4-10.2) mg/dL Total Bilirubin 0.4 (0.0-1.0) mg/dL Direct Bilirubin 0.2 (0.0-0.5) mg/dL AST 18 (5-31) U/L ALT 14 (0-31) U/L Alkaline Phosphatase 74 (39-117) U/L Total Protein 7.5 (6.5-8.0) g/dL Albumin 4.5 (3.5-5.0) g/dL Beta HCG, Quant < 2 mIU/mL Urine Color Yellow Urine Appearance Clear Urine pH 6.0 (5.0-9.0) Ur Specific [place] 1.010 (1.005-1.025) Urine Protein Negative (Neg-Trace) mg/dL Urine Glucose (UA) Negative (Negative) mg/dL Urine Ketones Negative (Negative) mg/dL Urine Blood Large (3+) H (Negative) Urine Nitrite Negative (Negative) Ur Leukocyte Esterase Negative (Negative) Urine RBC 0-2 (0-2) /HPF Urine WBC 0-5 (0-5) /HPF Ur Squamous Epith Cells 0-2 (0-2) /HPF Urine Bacteria None Seen (None Seen) Hyaline Casts 0-2 (0-2) /LPF Discharge Plan Discharge Clinical Impression: Menometrorrhagia Patient Disposition: Home, Self-Care Instructions: Dysfunctional Uterine Bleeding (ED) Additional Instructions: Your hemoglobin level today is 10.4( Normal is 12.0), which is consistent with anemia. Please follow-up with your primary care physician for repeat blood work and also for further evaluation and treatment if needed. Please follow-up with your primary care physician tomorrow. If you have any worsening or new symptoms, please return to the emergency room or call 911 Prescriptions: No Action oxycodone 5 mg tablet 5 mg PO Q6H PRN (Reason: pain) Qty: 7 0RF amoxicillin-pot clavulanate 875-125 mg tablet 1 tab PO Q12H 10 Days Qty: 20 0RF cephalexin 500 mg capsule 500 mg PO Q6H 7 Days Qty: 28 0RF ibuprofen 600 mg tablet 600 mg PO Q8H PRN (Reason: pain) Qty: 14 0RF erythromycin 5 mg/gram (0.5 %) ointment 0.5 inch ophthalmic (eye) Q4H Qty: 3.5 0RF Print Language: Persian
[2024-02-20 03:39] VITALS: BP 111/53; PULSE 64; RESP 12; TEMP 36.7; O2SAT 99
[2024-02-20 04:03] VITALS: BP 111/53; PULSE 64; RESP 12; TEMP 36.7; O2SAT 99
== END 2024-02-20 04:04 | disposition home or self-care (01) ==
PROVIDERS: Emergency Provider Emergency Medicine
DX: N92.1 Excessive and frequent menstruation with irregular cycle (principal); Z79.899 Other long term (current) drug therapy
CPT/HCPCS: 36415; 80048; 80076; 81001; 84702; 85025; 99283

== ENCOUNTER 2024-05-01 17:53 | Emergency (ER) | payer OTHER, SELFPAY ==
[2024-05-01 18:11] VITALS: BP 125/71; PULSE 71; RESP 16; TEMP 36.9; O2SAT 100; BMI 25.7
--- NOTE | 2024-05-01 18:16 | ED.MEDCLEAR ---
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 She denies any issues. We reviewed her history together and went over calculations from risk and needs for PEP. She agrees with the plan. She has no concerns. States the person she was tattooing was low risk per their report. MD complaint: other Onset (ago): day(s) (1) Reason for Medical Clearance: other (needlestick) Place: home Alleged Intoxication: No Compliant with Home Medications: No Traumatic Symptoms: other Associated Symptoms: denies other symptoms Treatments Prior to Arrival: none Related Information Previous Rx's ?Medication ?Instructions ?Recorded amoxicillin 875 mg-potassium 1 tab PO Q12H 10 days #20 tabs 09/15/21 clavulanate 125 mg tablet cephalexin 500 mg capsule 500 mg PO Q6H 7 days #28 caps 12/27/21 ibuprofen 600 mg tablet 600 mg PO Q8H PRN pain #14 tabs 12/27/21 oxycodone 5 mg tablet 5 mg PO Q6H PRN pain #7 tabs 12/28/21 erythromycin 5 mg/gram (0.5 %) eye 0.5 inch ophthalmic (eye) Q4H #3.5 03/19/23 ointment grams Allergies Allergy/AdvReac Type Severity Reaction Status Date / Time No Known Allergies Allergy Verified 05/01/24 18:12 Review of Systems Review of Systems: Constitutional : No Fever, No Chills, Cardiovascular : No Chest Pain, No SOB Respiratory : No Dyspnea Gastrointestinal : No abdominal pain Musculoskeletal : No Joint Swelling Skin : No rash, positive skin laceration Neuro : No Weakness, No Numbness Psych : No SI/HI all other systems reviewed and are negative PMFSH Past Medical History Attestation statement: The following information was validated with the patient. Source: old records reviewed Medical History COVID-19 No known health problems Social History Social History (Updated 05/01/24 @ 19:36 by Wendy Nolan DO) Patient Tobacco Use Status: Never used Tobacco Physical Exam Vital Signs: Vital Signs: Last Vital Signs Temp 97.9 F 05/01/24 19:15 Pulse 70 05/01/24 19:15 Resp 17 05/01/24 19:15 BP 132/78 05/01/24 19:15 Pulse Ox 100 05/01/24 19:15 O2 Del Method Room Air 05/01/24 19:15 BMI result Body Mass Index 25.7 Appearance: Alert. Oriented X3. No acute distress. Eyes: Pupils equal, round and reactive to light. ENT: Pharynx normal. Neck: Normal inspection. CVS: Pulses normal. Respiratory: No respiratory distress. Abdomen: Soft and non-tender. Skin: Skin warm and dry. Normal skin color. tattooed area on R 3rd digit dorsum small no signs of infection Extremities: No lower extremity edema. Neuro: Oriented X 3. No motor deficit. No sensory deficit. Course Course Course Narrative: RME performed by Pita Butterfield PA-C. Patient is a 23 year old assigned female at presenting to the emergency department after an accidental needle stick. Patient states that yesterday she had an accidental needle stick while performing a tattoo. Patient states that the stick was to ther 3rd right digit. Detailed physical exam and review of systems are deferred to the residential monitor. Labs ordered. Patient placed back in the waiting room pending room availability and results. 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 She is aware and feels comfortable with the plan. We will obtain labs and she will repeat them [facility] or [facility]. Given precautions to return. Differential Diagnosis Differential Diagnoses: The differential diagnosis associated with the presentation includes needlestick, body fluid exposure Lab Data [facility] Lab Attestation statement: I reviewed the patient's lab results. 05/01/24 19:04 Independent Historian Clinical information obtained from an independent historian. History obtained from or confirmed by: Friend Prescription Management I considered prescription management with: Antiviral Discharge Plan Discharge Clinical Impression: Exposure to body fluid due to accidental needlestick injury Patient Disposition: Home, Self-Care Instructions: Needle Stick Injuries (ED) Additional Instructions: as discussed your risk of HIV transmission is very low less than 0.001% after calculations repeat hepatitis and HIV testing with [facility], PCP in the next 1 to 3 months return for any issues such as yellow skin or eyes monitor needlestick area for redness, swelling, yellow drainage, or fevers (signs of infection) Prescriptions: No Action oxycodone 5 mg tablet 5 mg PO Q6H PRN (Reason: pain) Qty: 7 0RF amoxicillin-pot clavulanate 875-125 mg tablet 1 tab PO Q12H 10 Days Qty: 20 0RF cephalexin 500 mg capsule 500 mg PO Q6H 7 Days Qty: 28 0RF ibuprofen 600 mg tablet 600 mg PO Q8H PRN (Reason: pain) Qty: 14 0RF erythromycin 5 mg/gram (0.5 %) ointment 0.5 inch ophthalmic (eye) Q4H Qty: 3.5 0RF Print Language: Upper Sorbian
[2024-05-01 19:15] VITALS: BP 132/78; PULSE 70; RESP 17; TEMP 36.6; O2SAT 100
[2024-05-01 19:36] LABS: Alanine Aminotransferase 12 U/L (0-31); Albumin Level 4.4 g/dL (3.5-5.0); Alkaline Phosphatase 89 U/L (39-117); Amylase 100 U/L (28-100); Anion Gap 11 (12-20); Aspartate Amino Transferase 17 U/L (5-31); Bilirubin Total 0.2 mg/dL (0.0-1.0); Blood Urea Nitrogen 14 mg/dL (9-16); Calcium 9.3 mg/dL (8.4-10.2); Carbon Dioxide 25 mmol/L (22-29); Chloride 109 mmol/L (96-108); Creatinine Clr Calc Pharmacy 88.8; Estimated Glomerular Filt Rate > 60; Glucose Random 116 mg/dL (60-115); Lipase 32 U/L (8-78); Potassium 3.8 mmol/L (3.3-5.1); Sodium 141 mmol/L (135-145); Total Protein 7.6 g/dL (6.5-8.0)
[2024-05-01 19:42] VITALS: BP 132/78; PULSE 70; RESP 17; TEMP 36.6; O2SAT 100
[2024-05-02 08:15] LABS: HBc Num1 0.11 S/CO (0.00-0.79); HBsAGNum1 0.28 S/CO (0.00-0.99); HIV AB/AG Nonreactive (Nonreactive); HIV Num 1 0.05 S/CO (0.00-0.99); Hepatitis B Core Antibody Nonreactive (Nonreactive); Hepatitis B Surface Antigen Negative (Negative); ~HepC Num1 0.15 S/CO (0.00-0.79); ~Hepatitis C Antibody Nonreactive (Nonreactive)
[2024-05-02 09:35] LABS: HBS Num1 384.11 mIU/mL (0-7.99); ~Hepatitis B Surface Antibody REACTIVE (Nonreactive)
== END 2024-05-01 19:44 | disposition home or self-care (01) ==
PROVIDERS: Physician Assistant Medical; Emergency Provider Emergency Medicine
DX: T14.90XA Injury, unspecified, initial encounter (principal); W46.0XXA Contact with hypodermic needle, initial encounter; Y93.89 Activity, other specified; Y92.9 Unspecified place or not applicable; Y99.0 Civilian activity done for income or pay; Z77.21 Contact with and (suspected) exposure to potentially hazardous body fluids
CPT/HCPCS: 36415; 80053; 82150; 83690; 86704; 86706; 86803; 87340; 87389; 99283